=== PATIENT | male | born 1985 | race Caucasian/White ===

== ENCOUNTER 2019-04-16 09:59 | Emergency (ER) | payer SELFPAY ==
[2019-04-16] MEDS: CEPHALEXIN 500 MG CAPSULE PO STA (10:18)
--- NOTE | 2019-04-16 10:20 | Emergency Department Record ---
History of Present Illness - General Chief complaint: Extremity Problem Stated complaint: LEFT INDEX FINGER INJURY Time Seen by Provider: 04/16/19 10:12 Source: Patient Mode of Arrival: Ambulatory Limitations: No limitations - History of Present Illness Initial comments: 33 yo male presents after a left index finger injury last night. It was injured when a tire on a rim fell crushing the tip. The distal nail tip is intact. He has a laceration along the end of the finger parallel to the distal nail and laterally along the radial side. The injury was cleaned and dressed but he does work in a dirty environment in a [employer]. No other complaints or injuries. MD Complaint: Extremity pain -: Days(s) (5pm yesterday) Location: Left, Hand History of Same: No -: Yes Arthralgia Radiation: Distal Quality: Aching Consistency: Constant Improves with: Nothing Worsens with: Nothing Associated Symptoms: Denies other symptoms - Related Data Previous Rx's Medication Instructions Recorded Cephalexin [Keflex] 500 mg PO TID #21 cap 04/16/19 Allergies Allergy/AdvReac Type Severity Reaction Status Date / Time No Known Drug Allergies Allergy Verified 04/16/19 10:10 Review of Systems Constitutional: Denies: Chills, Fever, Malaise, Weakness Eyes: Denies: Eye discharge ENT: Denies: Congestion, Throat pain Respiratory: Denies: Cough Cardiovascular: Denies: Chest pain Endocrine: Denies: Fatigue Gastrointestinal: Denies: Abdominal pain, Nausea, Vomiting Genitourinary: Denies: Dysuria, Frequency, Hematuria Musculoskeletal: Denies: Arthralgia, Back pain, Myalgia Skin: Reports: Other. Denies: Bruising, Change in color, Rash Neurological: Denies: Headache, Numbness, Tingling, Weakness Psychiatric: Denies: Anxiety Hematological/Lymphatic: Denies: Easy bleeding, Easy bruising Physical Exam - General General Appearance: Alert, Oriented x3, Cooperative, No acute distress Limitations: No limitations - Head Head exam: Atraumatic, Normal inspection - Eye Eye exam: Normal appearance. negative: Conjunctival injection - ENT ENT exam: Normal exam Ear exam: Normal external inspection Nasal Exam: Normal inspection Mouth exam: Normal external inspection - Neck Neck exam: Normal inspection - Extremities Extremities exam: Full ROM, Tenderness. negative: Normal inspection, Joint swelling, Normal capillary refill Image of Finger Tip: 1 - laceration parallel to nail, no FB; 2 - lateral laceration creating a superfical skin flap, no debris in the wound. Skin with with chronic stains from his work but the wound appears clean internally - Neurological Neurological exam: Alert, Oriented X3. negative: Motor sensory deficit - Psychiatric Psychiatric exam: Normal affect, Normal mood - Skin Type of lesion: Laceration Course - Reevaluation(s) Reevaluation #1: 04/16/19 11:14 The hand was soaked and cleaned The XR was reviewed. Questionable tiny chip on tuft otherwise negative. No FB We spoke at length about delayed closure and risks of infection. We discussed some risk with superficial flap-like lacerations not healing at the tip and requiring revision with a specialist in the future due to the skin not having perfusion with a thin sliced flap. He understands the concerns with potential healing of the tip. I do not recommend a full closure due to risks. The majority of the injury will be left open to heal by secondary intention due to late presentation. The lateral flap will be pulled close just to allow the skin to be a natural dressing but have ample room to drain if any infection develops. Procedure: 2 cm laceration of the L index finger Wound was cleaned and prepped in sterile fashion, no residual FB identified on examination. The wound was copiously irrigated with NS. No FB seen. No gross contamination in the wound visualized Wound was anesthetized with 4 mL of 2% Lidocaine The laceration was repaired with Prolene 4-0 sutures in interrupted fashion to just hold the flap in place Patient tolerated the procedure well without complications. We discussed home care, reasons for immediate return if any concerns, and suture removal in 10 days Disposition Disposition: Discharge Clinical Impression: Finger laceration Qualifiers: Encounter type: initial encounter Finger: index finger Damage to nail status: without damage Foreign body presence: without foreign body Laterality: left Qualified Code(s): S61.211A - Laceration without foreign body of left index finger without damage to nail, initial encounter Disposition: Home, Self-Care Condition: (1) Good Instructions: Finger Laceration (ED) Additional Instructions: Change the dressing daily and clean the wounds Return immediately if warm, red, pus, painful Return on Saturday to have me assess the healing of the finger RETURN sooner if any concerns or signs of infection Keep covered except when cleaning Prescriptions: Cephalexin [Keflex] 500 mg PO TID #21 cap Forms: Patient Portal Access Time of Disposition: :23 Quality - Quality Measures Quality Measures: N/A - Blood Pressure Screening Does Patient Have Any of the Following: No Blood Pressure Classification: Pre-Hypertensive BP Reading Systolic Measurement: 128 Diastolic Measurement: 70 Screening for High Blood Pressure: < Pre-Hypertensive BP, F/U Documented > [[id number]] Pre-Hypertensive Follow-up Interventions: Referral to alternative/primary care provider.
--- NOTE | 2019-04-16 10:58 | RADIOLOGY REPORT ---
EXAMINATION: Left Thumb, Minimum Two Views EXAM DATE: 04/16/2019 10:41 AM TECHNIQUE: PA, lateral, and oblique views INDICATION: Crush injury COMPARISON: None ENCOUNTER: Initial FINDINGS: There is a soft tissue laceration of the distal aspect of the second digit. There is a tiny ossific d ensity along the lateral aspect of the tuft of the distal second phalanx. No radiopaque foreign juliet s are identified. IMPRESSION: 1. Tiny ossific density along the lateral aspect of the tuft of the distal second phalanx is suspicio us for a tiny chip fracture. 2. Soft tissue laceration at the distal tip of the second digit. Dictated by: Tom Stephenson on 04/16/2019 10:54 AM. .
== END 2019-04-16 11:34 | disposition home or self-care (01) ==
LOC: ER 09:59
DX: S61.211A Laceration without foreign body of left index finger without damage to nail, initial encounter (principal); W22.8XXA Striking against or struck by other objects, initial encounter; Y99.0 Civilian activity done for income or pay
CPT/HCPCS: 12041; 73140; 99284